=== PATIENT | male | born 1970 | race Caucasian/White ===

== ENCOUNTER 2023-01-01 17:32 | Inpatient (IN) | payer OTHER ==
[~2023-01-01] VITALS: Ht 170.2 cm; Wt 78.6 kg
[~2023-01-01 17:32] MED LIST: ASPirin-EC 81 mg tab PO SCH; ATORVASTATIN 20 MG TAB PO SCH
[2023-01-01 18:34] LABS: Albumin 3.2 g/dL (3.4-5.0); Calcium 8.7 mg/dL (8.5-10.1); Magnesium 1.8 mg/dL (1.6-2.6); Potassium 3.9 mmol/L (3.5-5.1)
[2023-01-01 18:37] LABS: BUN/Creatinine Ratio 10.5 (10.0-20.0); Bilirubin, Total 0.5 mg/dL (0.2-1.0); Total Protein 5.8 g/dL (6.4-8.2)
[2023-01-01 18:47] LABS: Basophils # (auto) 0 10 ^3/uL (0-0.2); Basophils % (auto) 0.3 % (0.0-2.0); Eosinophils # (auto) 0 10 ^3/uL (0-0.8); Eosinophils % (auto) 0.7 % (0.0-7.0); Hematocrit 31.6 % (41.0-53.0); Hemoglobin 11.3 g/dL (13.5-17.5); Lymphocytes # (auto) 1.6 10 ^3/uL (0.4-5.4); Lymphocytes % (auto) 24.6 % (10.0-50.0); Mean Corpuscular Hgb Conc. 35.6 g/dL (32.0-36.0); Mean Corpuscular Volume 89.8 fL (80.0-100.0); Monocytes # (auto) 0.5 10 ^3/uL (0-1.3); Monocytes % (auto) 8.3 % (0.0-12.0); Neutrophils # (auto) 4.4 10 ^3/uL (1.6-8.6); Neutrophils % (auto) 66.1 % (37.0-80.0); Red Blood Cells 3.52 10^6/uL (4.5-5.90); Red Cell Distribution Width 14.9 % (11.8-14.3); White Blood Cell 6.6 10^3/uL (4.4-10.8)
[2023-01-01 20:45] LABS: Urine Bacteria NONE SEEN /hpf (None Seen); Urine Blood Negative /uL (Negative); Urine Specific Gravity 1.048 (1.001-1.035); Urine WBC 3 /hpf (0 - 3)
[2023-01-01 20:52] LABS: Protein, Urine 18.6 mg/dL (0.0-11.9)
[2023-01-01] MEDS ORDERED: LORazepam 2MG/ML-1ML VIAL IV PRN (21:45)
[2023-01-01 21:49] VITALS: BP 122/74
[2023-01-01 22:31] VITALS: BP 118/77
[2023-01-01] MEDS ORDERED: MORPHINE SULFATE INJ 2 MG/ml SYRG IV PRN (23:15)
[2023-01-01] MEDS ORDERED: NITROGLYCERIN 0.4 MG SL TAB SL PRN (23:15)
[2023-01-02] VITALS (7 sets, daily range): BP systolic 113–141; BP diastolic 73–88
[2023-01-02] MEDS ORDERED: hydrALAZINE HCL 20 MG/ML VL IV PRN
[2023-01-02 01:28] LABS: Alcohol, Urine < 3.0 mg/dL (0-10); Cannabinoid Screen, Urine NEGATIVE (NEGATIVE)
[2023-01-02 01:30] LABS: Amphetamine Screen, Urine NEGATIVE (NEGATIVE); Barbiturate Scree,Urine NEGATIVE (NEGATIVE); Benzodiazephine Screen, Urine NEGATIVE (NEGATIVE); Cocaine Screen, Urine NEGATIVE (NEGATIVE); Opiate Scree,Urine NEGATIVE (NEGATIVE); Phencyclidine Screen, Urine NEGATIVE (NEGATIVE)
[2023-01-02 05:02] LABS: Basophils # (auto) 0 10 ^3/uL (0-0.2); Basophils % (auto) 0.6 % (0.0-2.0); Eosinophils # (auto) 0.1 10 ^3/uL (0-0.8); Eosinophils % (auto) 2.8 % (0.0-7.0); Hematocrit 29.2 % (41.0-53.0); Hemoglobin 10.6 g/dL (13.5-17.5); Lymphocytes # (auto) 1.6 10 ^3/uL (0.4-5.4); Lymphocytes % (auto) 34.2 % (10.0-50.0); Mean Corpuscular Hemoglobin 32.7 pg (28.0-32.0); Mean Corpuscular Hgb Conc. 36.2 g/dL (32.0-36.0); Mean Corpuscular Volume 90.2 fL (80.0-100.0); Monocytes # (auto) 0.5 10 ^3/uL (0-1.3); Monocytes % (auto) 11.1 % (0.0-12.0); Neutrophils # (auto) 2.4 10 ^3/uL (1.6-8.6); Neutrophils % (auto) 51.3 % (37.0-80.0); Nucleated Red Blood Cells % 0.2 %; Red Blood Cells 3.24 10^6/uL (4.5-5.90); Red Cell Distribution Width 15.1 % (11.8-14.3); White Blood Cell 4.7 10^3/uL (4.4-10.8)
[2023-01-02 05:26] LABS: Calcium 8.2 mg/dL (8.5-10.1); Potassium 3.4 mmol/L (3.5-5.1)
[2023-01-02 05:28] LABS: Albumin 2.6 g/dL (3.4-5.0); BUN/Creatinine Ratio 12.1 (10.0-20.0)
[2023-01-02 05:31] LABS: Bilirubin, Total 0.7 mg/dL (0.2-1.0); Total Protein 5.5 g/dL (6.4-8.2)
[2023-01-02] MEDS ORDERED: PANTOPRAZOLE 40 MG/10 ML VIAL INJ IV SCH (10:00)
[2023-01-02] MEDS ORDERED: POTASSIUM CHL 20 Meq TABLET PO ONE (11:00)
[2023-01-02 11:36] LABS: Cholesterol 117 mg/dL (< 200); HDL Cholesterol 56 mg/dL (40-59); LDL Cholesterol 51 mg/dL (< 100); Triglycerides 80 mg/dL (< 150)
[2023-01-02] MEDS: ATORVASTATIN 20 MG TAB PO SCH (11:40)
[2023-01-02] MEDS: ASPirin-EC 81 mg tab PO SCH (11:42)
[2023-01-02] MEDS: ENOXAPARIN SOD 40 MG/0.4 ML SYRINGE SC SCH (11:43)
[2023-01-02] MEDS ORDERED: AMLO-496 PO (13:09)
[2023-01-02] MEDS ORDERED: COLC1TAB3 PO (13:09)
[2023-01-02] MEDS ORDERED: CHLO25TA2 PO (13:09)
[2023-01-02] MEDS ORDERED: LISI20TA28 PO (13:09)
[2023-01-02 14:21] LABS: Folate (Folic Acid) 7.02 ng/mL (5.38-24)
[2023-01-03 05:00] VITALS: BP 139/89
[2023-01-03 06:37] LABS: Calcium 8.6 mg/dL (8.5-10.1); Magnesium 1.8 mg/dL (1.6-2.6); Potassium 3.7 mmol/L (3.5-5.1)
[2023-01-03 06:40] LABS: BUN/Creatinine Ratio 11.6 (10.0-20.0); Phosphorus 3.3 mg/dL (2.5-4.90)
[2023-01-03 09:00] VITALS: BP 152/99
[2023-01-03] MEDS: ENOXAPARIN SOD 40 MG/0.4 ML SYRINGE SC SCH (09:15)
[2023-01-03] MEDS: ASPirin-EC 81 mg tab PO SCH (09:15)
[2023-01-03] MEDS: ATORVASTATIN 20 MG TAB PO SCH (09:15)
[2023-01-03 13:00] VITALS: BP 157/101
[2023-01-03] MEDS ORDERED: CYANOCOBALAMIN (B-12) 1000 MCG/1 ML VIAL IM ONE (14:45)
[2023-01-03] MEDS ORDERED: ERGOCALCIFEROL 50,000 UNIT(1.25MG) CAP PO SCH (14:45)
[2023-01-03] MEDS ORDERED: hydrALAZINE HCL 25 MG TAB PO ONE (15:15)
[2023-01-03] MEDS ORDERED: cloNIDine HCL 0.1 MG TAB PO ONE (15:15)
[2023-01-03] MEDS ORDERED: ATOR20TA50 PO (15:58)
[2023-01-03] MEDS ORDERED: ERGO1CAP23 PO (15:58)
[2023-01-03] MEDS ORDERED: ASPI-543 PO (15:58)
[2023-01-03] MEDS ORDERED: CYAN100056 PO (15:59)
[2023-01-03] MEDS ORDERED: amLODIPine BESYLATE 5 MG TAB PO ONE (16:00)
[2023-01-03 16:18] VITALS: BP 157/101
== END 2023-01-03 17:00 | disposition home or self-care (01) | DRG 69 ==
LOC: EDBD 17:32 → ER 17:32 → TELE 23:18 → TELE-CENTR 01-02 11:02
PROVIDERS: ADMIT Registered Nurse; ATTEND Internal Medicine
PROC: 5A09457 Assistance with Respiratory Ventilation, 24-96 Consecutive Hours, Continuous Positive Airway Pressure (ICD-10-PCS; principal; 2023-01-01)
DX: G45.9 Transient cerebral ischemic attack, unspecified (principal); N17.0 Acute kidney failure with tubular necrosis; E44.0 Moderate protein-calorie malnutrition; E78.5 Hyperlipidemia, unspecified; G47.30 Sleep apnea, unspecified; K21.9 Gastro-esophageal reflux disease without esophagitis; F17.200 Nicotine dependence, unspecified, uncomplicated; M10.9 Gout, unspecified; E66.9 Obesity, unspecified; I11.9 Hypertensive heart disease without heart failure; Z86.718 Personal history of other venous thrombosis and embolism; Z90.49 Acquired absence of other specified parts of digestive tract; Z82.49 Family history of ischemic heart disease and other diseases of the circulatory system; Z82.5 Family history of asthma and other chronic lower respiratory diseases; Z86.711 Personal history of pulmonary embolism; Z79.899 Other long term (current) drug therapy; Z79.82 Long term (current) use of aspirin; Z68.27 Body mass index [BMI] 27.0-27.9, adult
CPT/HCPCS: 36415; 70450; 70545; 70551; 71045; 80048; 80053; 80061; 80307; 81001; 82306; 82570; 82607; 82746; 83036; 83735; 83880; 83935; 84100; 84156; 84300; 84443; 84484; 85025; 93005; 93306; 93886; 94660; C9113; G0378